=== PATIENT | female | born 1975 | race Caucasian/White ===

== ENCOUNTER 2016-10-29 12:30 | Emergency (ER) | payer BC ==
[2016-10-29] MEDS ORDERED: 0.9 % SODIUM CHLORIDE 1,000 ML BAG IV ONE (12:57)
--- NOTE | 2016-10-29 12:57 | Emergency Department Record ---
History of Present Illness - General Chief complaint: Pain Stated complaint: LEFT RIB PAIN Time Seen by Provider: 10/29/16 12:49 Source: Patient, RN notes reviewed Mode of Arrival: Ambulatory - History of Present Illness Initial comments: 2 am left flank pain and vomiting at midnight about 4 times, left upper quad abd pain. No trauma and she has chronic low back pain and uses norco for that. Patient in alot of pain when walking in to the hospital and it was more left rib and back pain and when I palpated her back it hurt alot. She also complains of a cough slight and no fever and she had chilles last night MD Complaint: Abdominal Pain Onset/Timin -: Hour(s) Location: Left History of Same: No Radiation: None Severity scale (1-10): 9 Quality: Sharp, Stabbing Consistency: Constant Improves with: Nothing Worsens with: Nothing Associated Symptoms: Denies other symptoms - Related Data Home Medications Medication Instructions Recorded Confirmed Last Taken Alprazolam [Xanax] 1 mg PO ASDIR 10/29/16 10/29/16 Unknown Cyclobenzaprine HCl [Flexeril] 10 mg PO ASDIR 10/29/16 10/29/16 10/28/16 Gabapentin [Neurontin] 800 mg PO BID 10/29/16 10/29/16 10/29/16 Hydrocodone/Acetaminophen [[place] 1 tab PO Q6H PRN 10/29/16 10/29/16 10/29/16 5mg/325mg] Venlafaxine HCl [Effexor] 75 mg PO DAILY 10/29/16 10/29/16 10/29/16 Previous Rx's Medication Instructions Recorded Azithromycin 500 mg PO DAILY #10 tablet 10/29/16 Hydrocodone/Acetaminophen [[place] 1 tab PO Q6H PRN #14 tab 10/29/16 5mg/325mg] Allergies Allergy/AdvReac Type Severity Reaction Status Date / Time No Known Drug Allergies Allergy Verified 10/29/16 12:37 Travel Screening - Travel/Exposure Within Last 30 Days Have you traveled within the last 30 days?: No - Travel/Exposure Within Last Year Have you traveled outside the [place] in the last year?: No - Additonal Travel Details Have you been exposed to anyone with a communicable illness?: No - Travel Symptoms Symptom Screening: None Review of Systems Reviewed: No additional complaints except as noted below Constitutional: Reports: As per HPI. Denies: Chills, Fever, Malaise, Night sweats, Weakness, Weight change Eyes: Reports: As per HPI. Denies: Eye discharge, Eye pain, Photophobia, Vision change ENT: Reports: As per HPI, Congestion. Denies: Dental pain, Ear pain, Epistaxis , Hearing loss, Throat pain Respiratory: Reports: As per HPI, Cough. Denies: Dyspnea, Hemoptysis, Stridor, Wheezes Cardiovascular: Reports: As per HPI. Denies: Arrhythmia, Chest pain, Dyspnea on exertion, Edema, Murmurs, Orthopnea, Palpitations, Paroxysmal nocturnal dyspnea, Rheumatic Fever, Syncope Endocrine: Reports: As per HPI. Denies: Fatigue, Heat or cold intolerance, Polydipsia, Polyuria Gastrointestinal: Reports: As per HPI, Abdominal pain, Vomiting. Denies: Constipation, Diarrhea, Hematemesis, Hematochezia, Melena, Nausea Genitourinary: Reports: As per HPI. Denies: Abnormal menses, Discharge, Dyspareunia, Dysuria, Frequency, Hematuria, Incontinence, Retention, Urgency Musculoskeletal: Reports: As per HPI. Denies: Arthralgia, Back pain, Gout, Joint swelling, Myalgia, Neck pain Skin: Reports: As per HPI. Denies: Bruising, Change in color, Change in hair/ nails, Lesions, Pruritus, Rash Neurological: Reports: As per HPI. Denies: Abnormal gait, Confusion, Headache, Numbness, Paresthesias, Seizure, Tingling, Tremors, Vertigo, Weakness Psychiatric: Reports: As per HPI. Denies: Anxiety, Auditory hallucinations, Depression, Homicidal thoughts, Suicidal thoughts, Visual hallucinations Hematological/Lymphatic: Reports: As per HPI. Denies: Anemia, Blood Clots, Easy bleeding, Easy bruising, Swollen glands Past Medical History - SOCIAL HISTORY Smoking Status: Current every day smoker Alcohol Use: None Drug Use: None - RESPIRATORY Hx Respiratory Disorders: No - CARDIOVASCULAR Hx Cardio Disorders: No - NEURO Hx Neuro Disorders: No - GI Hx GI Disorders: No - Hx Genitourinary Disorders: No - ENDOCRINE Hx Endocrine Disorders: No - MUSCULOSKELETAL Hx Musculoskeletal Disorders: Yes Hx Back Injury: Yes - PSYCH Hx Psych Problems: Yes Hx Anxiety: Yes - HEMATOLOGY/ONCOLOGY Hx Hematology/Oncology Disorders: No Family Medical History Any Significant Family History?: Yes Hx Anxiety: Father, Mother Hx Depression: Father Hx Heart Disease: Father Hx HTN: Father, Mother Physical Exam - General General Appearance: Alert, Oriented x3, Cooperative, No acute distress - Head Head exam: Normal inspection - Eye Eye exam: Normal appearance, PERRL Pupils: Normal accommodation - ENT ENT exam: Normal exam, Mucous membranes moist, Normal external ear exam, Normal orophraynx, TM's normal bilaterally Ear exam: Normal external inspection. negative: External canal tenderness Nasal Exam: Normal inspection. negative: Discharge, Sinus tenderness Mouth exam: Normal external inspection, Tongue normal Teeth exam: Normal inspection. negative: Dental caries Throat exam: Normal inspection. negative: Tonsillar erythema, Tonsillar exudate - Neck Neck exam: Normal inspection, Full ROM. negative: Tenderness - Respiratory Respiratory exam: Normal lung sounds bilaterally. negative: Respiratory distress - Cardiovascular Cardiovascular Exam: Regular rate, Normal rhythm, Normal heart sounds - GI/Abdominal GI/Abdominal exam: Soft, Normal bowel sounds, Tenderness (left upper quad) - Rectal Rectal exam: Deferred - exam: Deferred - Extremities Extremities exam: Normal inspection, Full ROM, Normal capillary refill. negative: Tenderness - Back Back exam: Reports: Normal inspection, Full ROM, Muscle spasm, Tenderness (left lower back pain). Denies: Rash noted - Neurological Neurological exam: Alert, Normal gait, Oriented X3, Reflexes normal - Psychiatric Psychiatric exam: Normal affect, Normal mood - Skin Skin exam: Dry, Intact, Normal color, Warm Course Vital Signs 10/29/16 12:41 Temperature 97.4 F L Pulse Rate 119 H Respiratory 22 Rate Blood Pressure 141/109 Pulse Ox 98 - Reevaluation(s) Reevaluation #1: discussed inpatient vs outpatient and she wanted to try outpatient and I told her if worse return and see her Dr on Tuesday which the appointment is already set 10/29/16 16:29 Medical Decision Making - Data Complexity MDM Data: Labs Ordered and/or Reviewed (23,500), X-Ray Ordered and/or Reviewed ( possible right middle lobe infiltarate vs excavatae of chest) - Lab Data Result diagrams: 10/29/16 13:15 10/29/16 13:15 Disposition Clinical Impression: Pneumonia Back pain Qualifiers: Back pain location: low back pain Chronicity: acute Back pain laterality: left Sciatica presence: with sciatica Sciatica laterality: sciatica of left side Qualified Code(s): M54.42 - Lumbago with sciatica, left side Abdominal pain Qualifiers: Abdominal location: left upper quadrant Qualified Code(s): R10.12 - Left upper quadrant pain Disposition: Home, Self-Care Condition: (1) Good Instructions: Community-acquired Pneumonia (ED) Additional Instructions: follow up with Tuesday and if worse return to ED. drink fluids Prescriptions: Azithromycin 500 mg PO DAILY #10 tablet Hydrocodone/Acetaminophen [[place] 5mg/325mg] 1 tab PO Q6H PRN #14 tab PRN Reason: Pain - General Forms: Patient Portal Access Time of Disposition: 16:33
[2016-10-29 13:20] LABS: HEMATOCRIT 40.2 % (35.0-47.0); HEMOGLOBIN 13.7 gm/dl (11.6-16.0); MEAN CELL VOLUME 82.5 fl (81-97); MEAN CORPUSCULAR HEMOGLOBIN 28.1 pg (27-33); MEAN CORPUSCULAR HGB CONC 34.1 g/dl (32-36); MEAN PLATELET VOLUME 10.4 fl (7.4-10.4); PLATELET COUNT 296 K/uL (130-400); RED BLOOD COUNT 4.87 M/uL (3.80-5.40); RED CELL DISTRIBUTION WIDTH 17.2 % (11.5-14.5)
[2016-10-29 13:24] LABS: WHITE BLOOD COUNT W/O DIFF 23.5 K/uL (4.2-12.2)
[2016-10-29 13:30] LABS: PLATELET ESTIMATE NORMAL (NORMAL)
[2016-10-29 13:44] LABS: ALKALINE PHOSPHATASE 74 U/L (38-126); ALT/SGPT 20 U/L (9-52); ANION GAP 16.8 (7-16); AST/SGOT 12 U/L (14-36); BILIRUBIN,TOTAL 1.89 mg/dL (0.2-1.3); BLOOD UREA NITROGEN 15 mg/dL (7-17); CARBON DIOXIDE 22.2 mmol/L (22-30); CREATININE 0.7 mg/dL (0.52-1.04); EST GLOMERULAR FILTRATION RATE > 60 ml/min; GLUCOSE,RANDOM 166 mg/dL (70-110); LIPASE 71 U/L (23-300); TOTAL PROTEIN 8.3 gm/dL (6.3-8.2)
[2016-10-29] MEDS ORDERED: AZITHROMYCIN 500 MG TABLET PO ONE (14:41)
[2016-10-29] MEDS ORDERED: CEFTRIAXONE SODIUM 1 GM in 0.9 % SODIUM CHLORIDE 100ML 100 ML IVPB ONE (14:41)
[2016-10-29] MEDS ORDERED: 0.9 % SODIUM CHLORIDE 1000ML 1,000 ML IV SCH (14:45)
[2016-10-29] MEDS ORDERED: KETOROLAC 30 MG/ML VIAL IVP ONE (14:45)
[2016-10-29 15:20] LABS: URINE APPEARANCE CLEAR; URINE BILIRUBIN NEGATIVE (NEGATIVE); URINE BLOOD MODERATE (NEGATIVE); URINE COLOR YELLOW; URINE GLUCOSE (UA) NEGATIVE (NEGATIVE); URINE KETONE NEGATIVE (NEGATIVE); URINE LEUKOCYTE ESTERASE NEGATIVE (NEGATIVE); URINE NITRITE NEGATIVE (NEGATIVE); URINE PROTEIN NEGATIVE (NEGATIVE); URINE UROBILINOGEN 0.2 E.U./dL (0.20 - 1.00)
[2016-10-29 15:28] LABS: URINE BACTERIA NONE SEEN; URINE RBC 0 - 2 (NONE SEEN); URINE WBC NONE SEEN (0-2/hpf)
--- NOTE | 2016-11-03 13:25 | RADIOLOGY REPORT ---
EXAM: CHEST, TWO VIEWS HISTORY: CHEST PAIN AND BACK PAIN. TECHNIQUE: PA and lateral views of the chest were obtained. Comparison: None. FINDINGS: There is a prominent pectus excavatum deformity of the lower anterior chest wall. On the frontal view there is vague opacity at the right base medially. Although suspicious for right middle lobe infiltrate on the frontal view, on the lateral view this is probably just related to the prominent pectus excavatum deformity. Any old films would be useful for comparison purposes to confirm that this is a chronic and unchanged appearance consistent with chest wall deformity rather than middle lobe infiltrate. The left lung appears expanded and clear. No pleural effusion or pneumothorax evident. Mild spurring in the spine. IMPRESSION: 1. PROMINENT PECTUS EXCAVATUM DEFORMITY OF THE LOWER CHEST. 2. VAGUE INCREASED DENSITY IN THE RIGHT BASE MEDIALLY OBSCURING THE RIGHT HEART BORDER ON THE FRONTAL VIEW. THIS IS PROBABLY JUST RELATED TO THE PECTUS EXCAVATUM DEFORMITY RATHER THAN REPRESENTING INFILTRATE IN THE RIGHT MIDDLE LOBE ALTHOUGH DIFFICULTY TO ABSOLUTELY EXCLUDE THE LATTER POSSIBILITY. COMPARISON WITH ANY OLD CHEST X-RAYS INCLUDING LATERAL VIEWS WOULD BE VERY USEFUL IN THIS REGARD TO CONFIRM. ALTERNATIVELY, SHORT TERM FOLLOW-UP COULD BE OBTAINED IF THERE IS A CLINICAL SUSPICION OF ACUTE RIGHT MIDDLE LOBE INFILTRATE TO SEE IF THERE IS ANY CHANGE IN THIS APPEARANCE. JOB NUMBER: [id number] [facility]
== END 2016-10-29 16:41 | disposition home or self-care (01) ==
LOC: ER 12:30
DX: J18.9 Pneumonia, unspecified organism (principal); M54.42 Lumbago with sciatica, left side; F17.210 Nicotine dependence, cigarettes, uncomplicated
CPT/HCPCS: 99284 ×2; 96365; 96366; 96375; 83690; 80076; 80048; 81001; 85379; 85027; 71020; J1885; J7030

== ENCOUNTER 2017-01-03 15:34 | Emergency (ER) | payer BC, MEDICAID ==
[2017-01-03] MEDS ORDERED: PREDNISONE 20 MG TAB PO ONE (16:40)
--- NOTE | 2017-01-03 16:40 | Emergency Department Record ---
History of Present Illness - General Chief Complaint: Cough Stated Complaint: COUGH Time Seen by Provider: 01/03/17 16:31 Source: Patient, Family Mode of Arrival: Ambulatory Limitations: No limitations - History of Present Illness Initial Comments: 41 yo female presents with about 5 days of cough, fevers, yellowish sputum. No blood. No nausea, vomiting or diarrhea. She has had a mild sore throat. No chest or abdominal pain. She does have mild history of asthma and she is a smoker. MD Complaint: Cough, Fever, Nasal congestion, Rhinorrhea, Sore throat -: Days(s) (5) Quality: Aching Consistency: Constant Context: Sick contacts () Treatments Prior to Arrival: None - Related Data Home Medications Medication Instructions Recorded Confirmed Last Taken Gabapentin [Neurontin] 800 mg PO BID 10/29/16 01/03/17 10/29/16 Bupropion HCl [Wellbutrin Xl] 300 mg PO DAILY 01/03/17 01/03/17 Unknown Clonidine HCl 0.1 mg PO DAILY 01/03/17 01/03/17 Unknown Previous Rx's Medication Instructions Recorded Hydrocodone/Acetaminophen [[place] 1 tab PO Q6H PRN #14 tab 10/29/16 5mg/325mg] Azithromycin [Zithromax] 250 mg PO DAILY #4 tab 01/03/17 Benzonatate [Tessalon] 1 cap PO Q8H PRN #20 cap 01/03/17 Prednisone [Prednisone 20Mg] 20 mg PO BID #10 tab 01/03/17 Allergies Allergy/AdvReac Type Severity Reaction Status Date / Time No Known Drug Allergies Allergy Verified 01/03/17 16:39 Review of Systems Constitutional: Reports: Chills, Fever, Malaise Eyes: Denies: Eye discharge, Eye pain, Photophobia, Vision change ENT: Reports: Congestion, Throat pain Respiratory: Reports: Cough, Dyspnea, Wheezes (at night) Cardiovascular: Denies: Chest pain, Palpitations, Syncope Endocrine: Denies: Fatigue, Polydipsia, Polyuria Gastrointestinal: Denies: Abdominal pain, Diarrhea, Nausea, Vomiting Genitourinary: Denies: Dysuria, Urgency Musculoskeletal: Denies: Arthralgia, Back pain, Myalgia, Neck pain Skin: Denies: Bruising, Change in color, Rash Neurological: Denies: Headache, Weakness Psychiatric: Denies: Anxiety Hematological/Lymphatic: Denies: Blood Clots, Easy bleeding, Easy bruising, Swollen glands Past Medical History - SOCIAL HISTORY Smoking Status: Current every day smoker Drug Use: None - RESPIRATORY Hx Respiratory Disorders: No - CARDIOVASCULAR Hx Cardio Disorders: No - NEURO Hx Neuro Disorders: No - GI Hx GI Disorders: No - Hx Genitourinary Disorders: No - ENDOCRINE Hx Endocrine Disorders: No - MUSCULOSKELETAL Hx Musculoskeletal Disorders: Yes Hx Back Injury: Yes - PSYCH Hx Psych Problems: Yes Hx Anxiety: Yes - HEMATOLOGY/ONCOLOGY Hx Hematology/Oncology Disorders: No Family Medical History Hx Anxiety: Father, Mother Hx Depression: Father Hx Heart Disease: Father Hx HTN: Father, Mother Physical Exam - General General Appearance: Alert, Oriented x3, Cooperative, No acute distress Limitations: No limitations - Head Head exam: Normal inspection - Eye Eye exam: Normal appearance, PERRL. negative: Conjunctival injection, Periorbital swelling - ENT ENT exam: Normal exam, Mucous membranes moist, Normal orophraynx, TM's normal bilaterally Ear exam: Normal external inspection. negative: External canal tenderness Nasal Exam: Discharge. negative: Normal inspection Mouth exam: Normal external inspection, Tongue normal Teeth exam: Normal inspection. negative: Dental caries Throat exam: Normal inspection. negative: Tonsillar erythema, Tonsillar exudate - Neck Neck exam: Normal inspection, Full ROM. negative: Lymphadenopathy, Tenderness - Respiratory Respiratory exam: Decreased breath sounds, Rhonchi. negative: Normal lung sounds bilaterally, Accessory muscle use, Chest wall tenderness, Prolonged expiratory, Rales, Respiratory distress, Stridor, Wheezes - Cardiovascular Cardiovascular Exam: Regular rate, Normal rhythm, Normal heart sounds - GI/Abdominal GI/Abdominal exam: Soft. negative: Tenderness - Rectal Rectal exam: Deferred - exam: Deferred - Extremities Extremities exam: Normal inspection, Full ROM, Normal capillary refill. negative: Pedal edema, Tenderness - Back Back exam: Reports: Normal inspection, Full ROM. Denies: Muscle spasm, Rash noted, Tenderness - Neurological Neurological exam: Alert, Oriented X3 - Psychiatric Psychiatric exam: Normal affect, Normal mood. negative: Agitated, Anxious - Skin Skin exam: Dry, Intact, Normal color, Warm Course - Reevaluation(s) Reevaluation #1: Vitals reviewed No tachycardia or hypoxia. Flu swab sent 01/03/17 16:42 Reevaluation #2: The influenza is negative She will be treated with Zithromax for her productive cough given she is a smoker she will be provided Prednisone as well given her asthma history 01/03/17 17:05 Disposition Disposition: Discharge Clinical Impression: Bronchitis Disposition: Home, Self-Care Return To Work/School Note Provided: Yes Condition: (1) Good Instructions: Acute Bronchitis (ED) Additional Instructions: Call your doctor for close follow up this week Return if worse, fever, vomiting or any new concerns Zithromax and Prednisone as directed Prescriptions: Prednisone [Prednisone 20Mg] 20 mg PO BID #10 tab Benzonatate [Tessalon] 1 cap PO Q8H PRN #20 cap PRN Reason: Cough Azithromycin [Zithromax] 250 mg PO DAILY #4 tab Forms: Patient Portal Access Time of Disposition: 17:07
[2017-01-03 17:01] LABS: INFLUENZA A NEGATIVE (NEGATIVE); INFLUENZA B NEGATIVE (NEGATIVE)
[2017-01-03] MEDS ORDERED: AZITHROMYCIN 500 MG TABLET PO ONE (17:05)
== END 2017-01-03 17:28 | disposition home or self-care (01) ==
LOC: ER 15:34
DX: J20.9 Acute bronchitis, unspecified (principal); Z87.891 Personal history of nicotine dependence
CPT/HCPCS: 87400; J7512; 99282

== ENCOUNTER 2018-04-10 20:37 | Emergency (ER) | payer SELFPAY ==
[2018-04-10 21:28] LABS: BASO % 0.3 % (0-6); EOS % 2.8 % (0-6); GRAN % 74.5 % (47-80); HEMATOCRIT 37.1 % (35.0-47.0); LYMPH % 17.9 % (16-45); MEAN CELL VOLUME 84.3 fl (81-97); MEAN CORPUSCULAR HEMOGLOBIN 29.5 pg (27-33); MEAN PLATELET VOLUME 10.3 fl (7.4-10.4); MONO % 4.5 % (0-9); PLATELET COUNT 282 K/uL (130-400); RED CELL DISTRIBUTION WIDTH 13.1 % (11.5-14.5); WHITE BLOOD COUNT W/O DIFF 12.6 K/uL (4.2-12.2)
[2018-04-10] MEDS ORDERED: ONDANSETRON HCL IV 4 MG/2 ML VIAL IVP ONE (21:35)
[2018-04-10 21:41] LABS: BLOOD UREA NITROGEN 9 mg/dL (6-20); CREATININE 0.5 mg/dL (0.5-0.9); EST GLOMERULAR FILTRATION RATE > 60 mL/min
[2018-04-10 21:44] LABS: GLUCOSE,RANDOM 154 mg/dL (74-109)
[2018-04-10 21:46] LABS: ALB/GLOB RATIO 1.5 (1.1-1.8); ALBUMIN 4.2 g/dL (4.0-5.0); ALKALINE PHOSPHATASE 70 U/L (35-104); ALT/SGPT 14 U/L (<33); AST/SGOT 16 U/L (10.0-35.0); LIPASE 10 U/L (13-60)
[2018-04-10] MEDS ORDERED: ACETAMINOPHEN 1,000 MG/100 ML BTL IVPB ONE (22:15)
[2018-04-10] MEDS ORDERED: ONDANSETRON 4 MG ODT TABLET SL ONE (22:29)
[2018-04-10] MEDS ORDERED: AMOXICILLIN/POTASSIUM CLAV 875MG/125MG TABLET PO ONE (22:40)
[2018-04-10] MEDS ORDERED: PROMETHAZINE HCL 12.5 MG in 0.9 % SODIUM CHLORIDE 100ML 100 ML IVPB ONE (22:42)
[2018-04-10] MEDS: KETOROLAC 30 MG/ML VIAL IVP ONE ×2 (22:51→23:05)
[2018-04-10] MEDS ORDERED: ORPHENADRINE CITRATE 60MG/2ML VIAL IM ONE (22:56)
--- NOTE | 2018-04-10 23:31 | Emergency Department Record ---
History of Present Illness - General Chief Complaint: Fall Injury Stated Complaint: FELL DOWN STEPS/BACK/NECK/ABDOMINAL PAIN Time Seen by Provider: 04/10/18 21:12 Source: Patient, Family Mode of Arrival: Ambulatory Limitations: No limitations - History of Present Illness Initial Comments: pt fell down 9 steps yesterday and has pain in her head, neck, back, abdomen. she denies she had a loc. she has taken a few norco for the pain. 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: Yes, by family Place Fall Occurred: Home Loss of Consciousness: None Prolonged Down Time?: No Symptoms Prior to Fall: None Location: Head, Neck, Back, Abdomen, Pelvis Severity: Severe Severity scale (1-10): 10 Quality: Sharp, Stabbing Context: Tripped/slipped Associated Symptoms: Abdominal pain, Headache, Neck pain - Leah Coma Scale Eye Response: (4) Open spontaneously Motor Response: (6) Obeys commands Verbal Response: (5) Oriented Leah Total: 15 - Related Data Home Medications Medication Instructions Recorded Confirmed Last Taken Clonazepam 1 tab PO BID 04/10/18 04/10/18 Unknown Dextroamphetamine/Amphetamine 20 mg PO BID 04/10/18 04/10/18 Unknown [Dextroamp-Amphetamin 20 mg Tab] Hydroxyzine HCl 50 mg PO TID PRN 04/10/18 04/10/18 Unknown Previous Rx's Medication Instructions Recorded Hydrocodone/Acetaminophen [[place] 1 tab PO Q6H PRN #14 tab 10/29/16 5mg/325mg] Amoxicillin/Potassium Clav 1 each PO BID #20 tablet 04/10/18 [Augmentin 875Mg/125Mg] Cyclobenzaprine HCl [Flexeril] 10 mg PO TID #14 tablet 04/10/18 Allergies Allergy/AdvReac Type Severity Reaction Status Date / Time No Known Drug Allergies Allergy Unverified 03/03/17 17:46 Travel Screening - Travel/Exposure Within Last 30 Days Have you traveled within the last 30 days?: No Review of Systems Reviewed: No additional complaints except as noted below Constitutional: Reports: As per HPI. Denies: Chills, Fever, Malaise, Night sweats, Weakness, Weight change Eyes: Reports: As per HPI. Denies: Eye discharge, Eye pain, Photophobia, Vision change ENT: Reports: As per HPI. Denies: Congestion, Dental pain, Ear pain, Epistaxis , Hearing loss, Throat pain Respiratory: Reports: As per HPI. Denies: Cough, Dyspnea, Hemoptysis, Stridor, Wheezes Cardiovascular: Reports: As per HPI. Denies: Arrhythmia, Chest pain, Dyspnea on exertion, Edema, Murmurs, Orthopnea, Palpitations, Paroxysmal nocturnal dyspnea, Rheumatic Fever, Syncope Endocrine: Reports: As per HPI. Denies: Fatigue, Heat or cold intolerance, Polydipsia, Polyuria Gastrointestinal: Reports: As per HPI. Denies: Abdominal pain, Constipation, Diarrhea, Hematemesis, Hematochezia, Melena, Nausea, Vomiting Genitourinary: Reports: As per HPI. Denies: Abnormal menses, Discharge, Dyspareunia, Dysuria, Frequency, Hematuria, Incontinence, Retention, Urgency Musculoskeletal: Reports: As per HPI. Denies: Arthralgia, Back pain, Gout, Joint swelling, Myalgia, Neck pain Skin: Reports: As per HPI. Denies: Bruising, Change in color, Change in hair/ nails, Lesions, Pruritus, Rash Neurological: Reports: As per HPI. Denies: Abnormal gait, Confusion, Headache, Numbness, Paresthesias, Seizure, Tingling, Tremors, Vertigo, Weakness Psychiatric: Reports: As per HPI. Denies: Anxiety, Auditory hallucinations, Depression, Homicidal thoughts, Suicidal thoughts, Visual hallucinations Hematological/Lymphatic: Reports: As per HPI. Denies: Anemia, Blood Clots, Easy bleeding, Easy bruising, Swollen glands Past Medical History - SOCIAL HISTORY Smoking Status: Current every day smoker Alcohol Use: None Drug Use: None - RESPIRATORY Hx Respiratory Disorders: Yes Hx Asthma: Yes - CARDIOVASCULAR Hx Cardio Disorders: No - NEURO Hx Neuro Disorders: No - GI Hx GI Disorders: Yes Hx Pancreatitis: Yes - Hx Genitourinary Disorders: No - ENDOCRINE Hx Endocrine Disorders: No - MUSCULOSKELETAL Hx Musculoskeletal Disorders: Yes Hx Back Injury: Yes - PSYCH Hx Psych Problems: Yes Hx Anxiety: Yes - HEMATOLOGY/ONCOLOGY Hx Hematology/Oncology Disorders: No Family Medical History Any Significant Family History?: Yes Hx Anxiety: Father, Mother Hx Depression: Father Hx Heart Disease: Father Hx HTN: Father, Mother Physical Exam - General General Appearance: Alert, Oriented x3, Cooperative, Mild distress - Head Head exam: Normal inspection Head exam detail: Other (tender) - Eye Eye exam: Normal appearance, PERRL, EOMI Pupils: Normal accommodation - ENT ENT exam: Normal exam, Mucous membranes moist, Normal external ear exam, Normal orophraynx Ear exam: Normal external inspection. negative: External canal tenderness Nasal Exam: Normal inspection. negative: Discharge, Sinus tenderness Mouth exam: Normal external inspection, Tongue normal Teeth exam: Normal inspection. negative: Dental caries Throat exam: Normal inspection. negative: Tonsillar erythema, Tonsillar exudate - Neck Neck exam: Normal inspection, Full ROM, Tenderness - Respiratory Respiratory exam: Normal lung sounds bilaterally. negative: Respiratory distress - Cardiovascular Cardiovascular Exam: Normal rhythm, Normal heart sounds, Tachycardia - GI/Abdominal GI/Abdominal exam: Soft, Normal bowel sounds, Tenderness - Rectal Rectal exam: Deferred - exam: Deferred - Extremities Extremities exam: Normal inspection, Full ROM, Normal capillary refill. negative: Tenderness - Back Back exam: Reports: Full ROM, Muscle spasm, Tenderness, Vertebral tenderness. Denies: Rash noted - Neurological Neurological exam: Alert, CN II-XII intact, Normal gait, Oriented X3 - Psychiatric Psychiatric exam: Normal affect, Normal mood - Skin Skin exam: Dry, Intact, Normal color, Warm Course Vital Signs 04/10/18 04/10/18 21:03 22:08 Temperature 98.4 F Pulse Rate [ 119 H 110 H Pulse Ox Probe] Respiratory 20 20 Rate Blood Pressure 117/92 115/79 [Left Arm] Pulse Ox 96 97 - Reevaluation(s) Reevaluation #1: 04/10/18 23:29 pts speech improved. she vomited a few times. she wanted differtent pain medication. it was explained to her that we wanted to help her pain but not cloud her mentation as she has a concussion that will require monitoring by her SO Medical Decision Making - Lab Data Result diagrams: 04/10/18 21:10 04/10/18 21:10 Lab Results 04/10/18 04/10/18 Range/Units 21:10 21:10 WBC 12.6 H (4.2-12.2) K/uL RBC 4.40 (3.80-5.40) M/uL Hgb 13.0 (11.6-16.0) gm/dl Hct 37.1 (35.0-47.0) % MCV 84.3 (81-97) fl MCH 29.5 (27-33) pg MCHC 35.0 (32-36) g/dl RDW 13.1 (11.5-14.5) % Plt Count 282 (130-400) K/uL MPV 10.3 (7.4-10.4) fl Gran % 74.5 (47-80) % Lymphocytes % 17.9 (16-45) % Monocytes % 4.5 (0-9) % Eosinophils % 2.8 (0-6) % Basophils % 0.3 (0-6) % Sodium 140 (136-145) mmol/L Potassium 3.4 (3.4-4.5) mmol/L Chloride 97 L (98-107) mmol/L Carbon Dioxide 25.0 (22-29) mmol/L Anion Gap 18.0 H (7-16) BUN 9 (6-20) mg/dL Creatinine 0.5 (0.5-0.9) mg/dL Estimated GFR > 60 mL/min Random Glucose 154 H (74-109) mg/dL Calcium 9.4 (8.6-10.0) mg/dL Total Bilirubin 1.20 H (0.2-1.0) mg/dL AST 16 (10.0-35.0) U/L ALT 14 (<33) U/L Alkaline Phosphatase 70 (35-104) U/L Total Protein 7.0 (6.6-8.7) g/dL Albumin 4.2 (4.0-5.0) g/dL Globulin 2.8 (1.4-4.8) gm/dL Albumin/Globulin Ratio 1.5 (1.1-1.8) Lipase 10 L (13-60) U/L Disposition Disposition: Discharge Clinical Impression: Multiple contusions Concussion Qualifiers: Encounter type: initial encounter Loss of consciousness presence/duration: without LOC Qualified Code(s): S06.0X0A - Concussion without loss of consciousness, initial encounter Pneumonia Qualifiers: Pneumonia type: due to unspecified organism Laterality: right Lung location: middle lobe of lung Qualified Code(s): J18.1 - Lobar pneumonia, unspecified organism Disposition: Home, Self-Care Condition: (1) Good Instructions: Concussion (ED), Pneumonia (ED), Contusion in Adults (ED) Additional Instructions: follow up with family doctor. return sooner if worse. motrin for pain Prescriptions: Amoxicillin/Potassium Clav [Augmentin 875Mg/125Mg] 1 each PO BID #20 tablet Cyclobenzaprine HCl [Flexeril] 10 mg PO TID #14 tablet Quality - Quality Measures Quality Measures: N/A - Blood Pressure Screening Does Patient Have Any of the Following: No Blood Pressure Classification: Normal BP Reading Systolic Measurement: 115 Diastolic Measurement: 79 Screening for High Blood Pressure: < Normal BP, F/U Not Required > [G8726]
--- NOTE | 2018-04-13 08:33 | CT SCAN REPORT ---
EXAM: CT OF THE BRAIN WITHOUT CONTRAST HISTORY: INJURY. TECHNIQUE: Sequential axial images were obtained from the foramen magnum to the vertex without contrast administration. FINDINGS: The brain volume is normal. No large territorial infarct, hemorrhage , mass effect, or midline shift. No extraaxial fluid collection. There is maxillary sinus disease. No depressed skull fracture. IMPRESSION: RIGHT MAXILLARY SINUS DISEASE. THE REMAINDER OF THE EXAMINATION IS UNREMARKABLE. JOB NUMBER: [id number] [facility]
--- NOTE | 2018-04-13 08:44 | CT SCAN REPORT ---
EXAM: CT OF THE CERVICAL SPINE HISTORY: INJURY. TECHNIQUE: Sequential axial images were obtained through the cervical spine without intravenous contrast administration. Sagittal and coronal reformatted images were performed. FINDINGS: Motion artifact somewhat limits evaluation. There is no evidence of fracture, subluxation, or perched facet. IMPRESSION: MOTION ARTIFACT SOMEWHAT LIMITS EVALUATION. NO EVIDENCE OF FRACTURE, SUBLUXATION OR PERCHED FACET. JOB NUMBER: [id number] [facility]
--- NOTE | 2018-04-13 08:48 | CT SCAN REPORT ---
EXAM: CT OF THE CHEST WITH CONTRAST HISTORY: INJURY. TECHNIQUE: Sequential axial images were obtained from the thoracic inlet through the bilateral adrenal glands after intravenous administration of 100 ml of Omnipaque 300 contrast material. FINDINGS: The mediastinal vasculature enhances normally. There is a pectus excavatum deformity. The heart size is normal. No pericardial effusion. Underlying centrilobular emphysematous change. There is right middle lobe infiltrate. No pleural effusion is appreciated. No compression fracture deformity. The sternum is intact. No pneumothorax. No rib fracture deformity. IMPRESSION: 1. RIGHT MIDDLE LOBE INFILTRATE. 2. UNDERLYING CENTRILOBULAR EMPHYSEMATOUS CHANGE. 3. PECTUS EXCAVATUM DEFORMITY. JOB NUMBER: [id number] [facility]
--- NOTE | 2018-04-13 08:53 | CT SCAN REPORT ---
EXAM: CT OF THE ABDOMEN AND PELVIS WITH CONTRAST HISTORY: FALL. TECHNIQUE: Sequential axial images were obtained from the diaphragms through the ischiorectal fossa after intravenous administration of 100 ml of Omnipaque 300 contrast material. FINDINGS: There is infiltrate in the right middle lobe. The liver appears homogeneous. There is mild intrahepatic and extrahepatic ductal dilatation. No gallstones are appreciated. The pancreas and spleen appear normal. The adrenal glands and kidneys appear normal. The small bowel appears normal. The colon appears normal. The uterus and adnexal structures are normal. The urinary bladder appears normal. There is mild sclerosis of the sacroiliac joints. The transverse processes are intact. The lumbar spine is intact. IMPRESSION: 1. NO ACUTE ABDOMINAL OR PELVIC DISEASE PROCESS IS APPRECIATED. 2. NO GALLSTONES ARE APPRECIATED. THERE IS, HOWEVER, INTRAHEPATIC AND EXTRAHEPATIC DUCTAL DILATATION. CORRELATION WITH PATIENT'S LIVER ENZYMES IS RECOMMENDED. 3. MILD SCLEROSIS OF THE SACROILIAC JOINTS. JOB NUMBER: [id number] [facility]
== END 2018-04-10 23:49 | disposition home or self-care (01) ==
LOC: ER 20:37
DX: S06.0X0A Concussion without loss of consciousness, initial encounter (principal); J18.1 Lobar pneumonia, unspecified organism; R11.11 Vomiting without nausea; R51 Headache; M54.2 Cervicalgia; R47.89 Other speech disturbances; W10.8XXA Fall (on) (from) other stairs and steps, initial encounter; Y92.008 Other place in unspecified non-institutional (private) residence as the place of occurrence of the external cause
CPT/HCPCS: 99284 ×2; 96374; 96372; 96375; 83690; 85025; 80053; 72125; 71260; 70450; 74177; Q9967; J2405; J1885; J2360; J2550